=== PATIENT | female | born 1990 | race Caucasian/White ===

== ENCOUNTER 2024-11-13 16:24 | Emergency (ER) | payer OTHER ==
[2024-11-13 16:40] VITALS: RESP 18; TEMP 98.1
--- NOTE | 2024-11-13 17:09 | ED ---
Female Urogenital HPI - General Chief complaint: Vaginal Bleeding Stated complaint: Urogenital Time Seen by Provider: 11/13/24 17:08 Source: patient, RN notes reviewed Mode of arrival: ambulatory Limitations: no limitations - History of Present Illness Initial comments: 34-year-old female G3, presenting to the ER for evaluation of vaginal clotting. Patient states last Tuesday, 11 07 24, she started to experience abdominal cramping and believed her menstrual cycle was about to begin. The following day she noted vaginal spotting which she also contributed to her menstrual cycle. She states Tuesday evening she passed 1 large clot in her pants. Tuesday she had "a normal menstrual cycle" with heavy bleeding. The next 2 days she had very light spotting but not even feeling a menstrual pad. Today she had continued of passing numerous clots. She reports minimal abdominal cramping at this time. Patient states her last menstrual cycle was 10-10-2024. She is unsure if she was but states this type of bleeding occurred in her last miscarriage in 2018. She denies any dizziness, lightheadedness, shortness of breath, chest pain, dysuria, constipation/diarrhea or peripheral edema. - Related Data Allergies Allergy/AdvReac Type Severity Reaction Status Date / Time No Known Allergies Allergy Verified 11/13/24 16:34 Review of Systems ROS Statement: Those systems with pertinent positive or pertinent negative responses have been documented in the HPI. ROS Other: All systems not noted in ROS Statement are negative. Past Medical History Additional Past Medical History / Comment(s): miscarriage Past Surgical History: Appendectomy, Breast Surgery, Section Additional Past Surgical History / Comment(s): lymph node removed from R axilla. pyogenic granuloma removed from R breast Past Psychological History: No Psychological Hx Reported Smoking Status: Never smoker Past Alcohol Use History: None Reported Past Drug Use History: None Reported General Exam Limitations: no limitations General appearance: alert, in no apparent distress Respiratory exam: Present: normal lung sounds bilaterally. Absent: respiratory distress, wheezes, rales, rhonchi, stridor Cardiovascular Exam: Present: regular rate, normal rhythm, normal heart sounds. Absent: systolic murmur, diastolic murmur, rubs, gallop, clicks GI/Abdominal exam: Present: soft, normal bowel sounds. Absent: distended, tenderness, guarding, rebound, rigid External exam: Present: normal external exam Speculum exam: Present: vaginal bleeding (Minimal) Neurological exam: Present: alert, oriented X3, CN II-XII intact Skin exam: Present: warm, dry, intact, normal color. Absent: rash Course Vital Signs 11/13/24 11/13/24 16:35 20:43 Temperature 98.1 F Pulse Rate 98 80 Respiratory 18 18 Rate Blood Pressure 104/61 110/76 O2 Sat by Pulse 96 99 Oximetry Medical Decision Making - Medical Decision Making Was pt. sent in by a medical professional or institution (, PA, MEDICAL SALES CONSULTANT, urgent care, hospital, or [facility]...) When possible be specific @ -No Did you speak to anyone other than the patient for history (EMS, parent, family, police, friend...)? What history was obtained from this source @ -No Did you review nursing and triage notes (agree or disagree)? Why? @ -I reviewed and agree with nursing and triage notes Were old charts reviewed (outside hosp., previous admission, EMS record, old EKG, old radiological studies, urgent care reports/EKG's, [facility] records)? Report findings @ -No old charts were reviewed Differential Diagnosis (chest pain, altered mental status, abdominal pain women, abdominal pain men, vaginal bleeding, weakness, fever, dyspnea, syncope, headache, dizziness, GI bleed, back pain, seizure, CVA, palpatations, mental health, musculoskeletal)? @ -[Differential Vaginal Bleeding:Spontaneous , threatened , m olar , ectopic , bloody show, incompetent cervix, abruptioplacenta, placenta previa, uterine rupture, dysfunctional uterine bleeding, hemorrhage, uterine fibroids, this is not meant to be an all-inclusive list. EKG interpreted by me (3pts min.). @ -None done X-rays interpreted by me (1pt min.). @ -None done CT interpreted by me (1pt min.). @ -None done U/S interpreted by me (1pt. min.). @ -Transvaginal ultrasound showing a right ovarian cyst. Appropriate arterial and venous blood flow to right ovary. Left ovary unable to be visualized. What testing was considered but not performed or refused? (CT, X-rays, U/S, labs)? Why? @ -None What meds were considered but not given or refused? Why? @ -None Did you discuss the management of the patient with other professionals (professionals i.e. DrEsme, PA, MEDICAL SALES CONSULTANT, lab, RT, psych nurse, psychotherapist social worker, tool turret lathe set up operator, teacher, customs and immigration officer, case repairer)? Give summary @ -No Was smoking cessation discussed for >3mins.? @ -No Was critical care preformed (if so, how long)? @ -No Were there social determinants of health that impacted care today? How? (Homelessness, low income, unemployed, alcoholism, drug addiction, transportation, low edu. Level, literacy, decrease access to med. care, group home, rehab)? @ -No Was there de-escalation of care discussed even if they declined (Discuss DNR or withdrawal of care, Hospice)? DNR status @ -No What co-morbidities impacted this encounter? (DM, HTN, Smoking, COPD, CAD, Cancer, CVA, ARF, Chemo, Hep., AIDS, mental health diagnosis, sleep apnea, morbid obesity)? @ -None Was patient admitted / discharged? Hospital course, mention meds given and route, prescriptions, significant lab abnormalities, going to OR and other pertinent info. @ -Discharge. 34-year-old female presented to ER for evaluation of vaginal clotting. Patient is concerned as she has had similar bleeding patterns in the past with miscarriages. Upon rooming, history and physical exam completed. Vitals within acceptable limits. Pelvic exam performed and chaperoned by Bahman Gayle RN. Exam remarkable for minimal cervical bleeding. No CMT. Laboratory data obtained showing a stable hemoglobin of 13.2, WBC 9.4. Serum hCG less than 2.4. Transvaginal ultrasound showing a right ovarian cyst with appropriate blood flow to right ovary. Left ovary is unable to be visualized. As patient is not having no abdominal pain with stable vital signs and hemoglobin I believe she stable for discharge and outpatient follow-up. Patient is agreeable to this. Strict return parameters discussed. Patient discharged in stable condition with follow-up to PCP/HORSE STUD WORKER. Patient verbally expressed understanding and agreement with care plan. Case discussed with ED attending, Dr. Rollins. Undiagnosed new problem with uncertain prognosis? @ -No Drug Therapy requiring intensive monitoring for toxicity (Heparin, Nitro, Insulin, Cardizem)? @ -No Were any procedures done? @ -No Diagnosis/symptom? @ -Vaginal bleeding Acute, or Chronic, or Acute on Chronic? @ -Acute Uncomplicated (without systemic symptoms) or Complicated (systemic symptoms)? @ -Uncomplicated Side effects of treatment? @ -No Exacerbation, Progression, or Severe Exacerbation? @ -No Poses a threat to life or bodily function? How? (Chest pain, [place], [place], pneumonia, PE, COPD, DKA, ARF, appy, cholecystitis, CVA, Diverticulitis, Homicidal, Suicidal, threat to staff... and all critical care pts) @ -No - Lab Data Result diagrams: 11/13/24 17:28 11/13/24 17:28 Lab Results 11/13/24 11/13/24 Range/Units 17:28 17:28 WBC 9.4 (3.8-10.6) k/uL RBC 4.85 (3.80-5.40) m/uL Hgb 13.2 (11.4-16.0) gm/dL Hct 39.9 (34.0-46.0) % MCV 82.2 (80.0-100.0) fL MCH 27.1 (25.0-35.0) pg MCHC 33.0 (31.0-37.0) g/dL RDW 13.1 (11.5-15.5) % Plt Count 336 (150-450) k/uL MPV 7.3 Neutrophils % 63 % Lymphocytes % 28 % Monocytes % 5 % Eosinophils % 2 % Basophils % 0 % Neutrophils # 5.9 (1.3-7.7) k/uL Lymphocytes # 2.6 (1.0-4.8) k/uL Monocytes # 0.5 (0-1.0) k/uL Eosinophils # 0.2 (0-0.7) k/uL Basophils # 0.0 (0-0.2) k/uL Sodium 136 L (137-145) mmol/L Potassium 4.0 (3.5-5.1) mmol/L Chloride 102 (98-107) mmol/L Carbon Dioxide 27 (22-30) mmol/L Anion Gap 7 mmol/L BUN 13 (7-17) mg/dL Creatinine 0.57 (0.52-1.04) mg/dL Est GFR (CKD-EPI)AfAm >90 (>60 ml/min/1.73 sqM) Est GFR (CKD-EPI)NonAf >90 (>60 ml/min/1.73 sqM) Glucose 94 (74-99) mg/dL Calcium 9.5 (8.4-10.2) mg/dL Total Bilirubin 0.3 (0.2-1.3) mg/dL AST 32 (14-36) U/L ALT 20 (4-34) U/L Alkaline Phosphatase 77 (38-126) U/L Total Protein 7.2 (6.3-8.2) g/dL Albumin 4.0 (3.5-5.0) g/dL HCG, Quant <2.4 mIU/mL - Radiology Data Radiology results: report reviewed, image reviewed Disposition Clinical Impression: Vaginal bleeding Disposition: HOME SELF-CARE Condition: Stable Additional Instructions: Follow-up with [facility]ESS and PCP. Return to the ER for any new or worsening concerns. Is patient prescribed a controlled substance at d/c from ED?: No Referrals: Bahman Martinez DO [Primary Care Provider] - 1-2 days Kane Mcneal MD [STAFF PHYSICIAN] - 1-2 days Time of Disposition: 19:57
[2024-11-13 17:39] LABS: Basophils % (A) 0 %; Eosinophils # (A) 0.2 k/uL (0-0.7); Eosinophils % (A) 2 %; HCT 39.9 % (34.0-46.0); HGB 13.2 gm/dL (11.4-16.0); Lymphocytes # (A) 2.6 k/uL (1.0-4.8); Lymphocytes % (A) 28 %; MCH 27.1 pg (25.0-35.0); MCV 82.2 fL (80.0-100.0); Mean Platelet Volume 7.3; Monocytes # (A) 0.5 k/uL (0-1.0); Monocytes % (A) 5 %; Neutrophils # (A) 5.9 k/uL (1.3-7.7); Neutrophils % (A) 63 %; Platelet Count 336 k/uL (150-450); RBC 4.85 m/uL (3.80-5.40); RDW 13.1 % (11.5-15.5); WBC 9.4 k/uL (3.8-10.6)
[2024-11-13 17:51] LABS: ALT 20 U/L (4-34); AST 32 U/L (14-36); African American GFR (CKD) >90 (>60 ml/min/1.73 sqM); Alkaline Phosphatase 77 U/L (38-126); Anion Gap 7 mmol/L; Blood Urea Nitrogen 13 mg/dL (7-17); Calcium 9.5 mg/dL (8.4-10.2); Carbon Dioxide 27 mmol/L (22-30); Chloride 102 mmol/L (98-107); Glucose 94 mg/dL (74-99); Non-African American GFR(CKD) >90 (>60 ml/min/1.73 sqM); Sodium 136 mmol/L (137-145); Total Bilirubin 0.3 mg/dL (0.2-1.3); Total Protein 7.2 g/dL (6.3-8.2)
[2024-11-13 18:08] LABS: HCG,Quantitative Serum <2.4 mIU/mL
--- NOTE | 2024-11-13 19:44 | US ---
EXAMINATION TYPE: US transvaginal DATE OF EXAM: 11/13/2024 COMPARISON: NONE CLINICAL INDICATION: Female, 34 years old with history of vaginal clotting; Patient states heavy vagi nal bleeding since tuesday, unlike normal menstrual cycle. hx 2 C sections TECHNIQUE: Transvaginal (TV). Transvaginal sonographic images were medically necessary to better assess the following anatomy: Uter us Doppler imaging: Color Doppler Images were obtained. Spectral doppler images were obtained. FINDINGS: Date of LMP: 10/10/24 EXAM MEASUREMENTS: Uterus: 9.9 x 4.5 x 4.7 cm Endometrial Stripe: 0.9 cm Right Ovary: 3.5 x 2.5 x 2.6 cm Left Ovary: obscured by gas 1. Uterus: Anteverted There are multiple anechoic areas seen within the cervix, largest measuring 1.2 x 1.0 x 0.9 compatible with nabothian cysts. 2. Endometrium: wnl 3. Right Ovary: There is a 3.2 x 1.8 x 2.6cm cystic lesion seen 4. Left Ovary: Obscured by overlying bowel gas Spectral, color and waveform doppler imaging shows good arterial and venous flow within the right o vary; there is no evidence for ovarian torsion within the right ovary. Left ovary not visualized due to overlying bowel gas 5. Bilateral Adnexa: wnl as best seen 6. Posterior cul-de-sac: wnl IMPRESSION: 1. Right ovarian cyst [facility], , 11/13/2024 7:41 PM
[2024-11-13 20:44] VITALS: BP 110/76; PULSE 80
== END 2024-11-13 20:48 | disposition home or self-care (01) ==
LOC: EC 16:24
DX: N93.9 Abnormal uterine and vaginal bleeding, unspecified (principal)
CPT/HCPCS: 36415; 76830; 80053; 84702; 85025; 93976; 99284

== ENCOUNTER 2025-02-27 14:53 | Emergency (ER) | payer OTHER ==
--- NOTE | 2025-02-27 15:35 | ED ---
Skin/Abscess/FB HPI - General Chief complaint: Skin/Abscess/Foreign Body Stated complaint: R Leg Rash/Pain Time Seen by Provider: 02/27/25 15:05 Source: patient, RN notes reviewed Mode of arrival: ambulatory Limitations: no limitations - History of Present Illness Initial comments: This is a 34-year-old female presenting for rash in right groin for several years. Patient endorses burning and odor associated with rash. Endorses prior use of nystatin, clotrimazole, cornstarch baby powder with rash nearly resolving before returning after running out of medication. Patient notes some draining from rash for the past 4 days. Denies fever, chills, significant tenderness, purulent discharge, red streaking. MD complaint: rash Onset/Timin -: year(s) Location: genitals Quality: burning Consistency: constant Improves with: topical medication Worsens with: palpation, movement Context: none Associated symptoms: denies other symptoms Treatments Prior to Arrival: other - Related Data Previous Rx's Medication Instructions Recorded Miconazole 2% Cream [Monistat-Derm] 1 applic TOPICAL BID #30 gm 02/27/25 Nystatin 100,000 Unit/gm Powd 1 applic TOPICAL TID #30 gm 02/27/25 [Mycostatin Powder] Allergies Allergy/AdvReac Type Severity Reaction Status Date / Time No Known Allergies Allergy Verified 02/27/25 15:03 Review of Systems ROS Statement: Those systems with pertinent positive or pertinent negative responses have been documented in the HPI. ROS Other: All systems not noted in ROS Statement are negative. Past Medical History Additional Past Medical History / Comment(s): miscarriage Past Surgical History: Appendectomy, Breast Surgery, Section Additional Past Surgical History / Comment(s): lymph node removed from R axilla. pyogenic granuloma removed from R breast Past Psychological History: No Psychological Hx Reported Smoking Status: Never smoker Past Alcohol Use History: None Reported Past Drug Use History: None Reported General Exam Limitations: no limitations General appearance: alert, in no apparent distress Head exam: Present: atraumatic, normocephalic, normal inspection Eye exam: Present: normal appearance, PERRL, EOMI. Absent: scleral icterus, conjunctival injection, periorbital swelling ENT exam: Present: normal exam, mucous membranes moist Neck exam: Present: normal inspection. Absent: tenderness, meningismus, lymphad enopathy Respiratory exam: Present: normal lung sounds bilaterally. Absent: respiratory distress, wheezes, rales, rhonchi, stridor Cardiovascular Exam: Present: regular rate, normal rhythm, normal heart sounds. Absent: systolic murmur, diastolic murmur, rubs, gallop, clicks GI/Abdominal exam: Present: soft, normal bowel sounds. Absent: distended, tenderness, guarding, rebound, rigid Extremities exam: Present: normal inspection, full ROM, normal capillary refill. Absent: tenderness, pedal edema, joint swelling, calf tenderness Back exam: Present: normal inspection Neurological exam: Present: alert, oriented X3, CN II-XII intact Psychiatric exam: Present: normal affect, normal mood Skin exam: Present: warm, dry, intact, normal color, rash (Positive extensive intertrigo rash noted right inguinal region fold with associated odor. No obvious vesicles/blistering, discharge, tenderness) Course Vital Signs 02/27/25 02/27/25 14:59 16:19 Temperature 98.2 F 98.0 F Pulse Rate 73 70 Respiratory 16 20 Rate Blood Pressure 132/98 126/99 O2 Sat by Pulse 99 99 Oximetry Medical Decision Making - Medical Decision Making Was pt. sent in by a medical professional or institution (, EMMANUELLE, IC DESIGN MANAGER, urgent care, hospital, or care home...) When possible be specific @ -[No] Did you speak to anyone other than the patient for history (EMS, parent, family, police, friend...)? What history was obtained from this source @ -[No] Did you review nursing and triage notes (agree or disagree)? Why? @ -[I reviewed and agree with nursing and triage notes] Were old charts reviewed (outside hosp., previous admission, EMS record, old EKG, old radiological studies, urgent care reports/EKG's, care home records)? Report findings @ -[No old charts were reviewed] Differential Diagnosis (chest pain, altered mental status, abdominal pain women, abdominal pain men, vaginal bleeding, weakness, fever, dyspnea, syncope, headache, dizziness, GI bleed, back pain, seizure, CVA, palpatations, mental health, musculoskeletal)? @ -Intertrigo, cellulitis, erysipelas, tinea corporis, SJS, TENS, this is not an exhaustive list EKG interpreted by me (3pts min.). @ -Not done X-rays interpreted by me (1pt min.). @ -[None done] CT interpreted by me (1pt min.). @ -[None done] U/S interpreted by me (1pt. min.). @ -[None done] What testing was considered but not performed or refused? (CT, X-rays, U/S, labs)? Why? @ -[None] What meds were considered but not given or refused? Why? @ -[None] Did you discuss the management of the patient with other professionals (professionals i.e. DrEsme, PA, IC DESIGN MANAGER, lab, RT, psych nurse, director of social work, sheriff deputy, teacher, canine enforcement officer, case resource manager)? Give summary @ -[No] Was smoking cessation discussed for >3mins.? @ -[No] Was critical care preformed (if so, how long)? @ -[No] Were there social determinants of health that impacted care today? How? (Homelessness, low income, unemployed, alcoholism, drug addiction, transportation, low edu. Level, literacy, decrease access to med. care, penitentiary, rehab)? @ -[No] Was there de-escalation of care discussed even if they declined (Discuss DNR or withdrawal of care, Hospice)? DNR status @ -[No] What co-morbidities impacted this encounter? (DM, HTN, Smoking, COPD, CAD, Cancer, CVA, ARF, Chemo, Hep., AIDS, mental health diagnosis, sleep apnea, morbid obesity)? @ -[None] Was patient admitted / discharged? Hospital course, mention meds given and route, prescriptions, significant lab abnormalities, going to OR and other pertinent info. @ -[hospital course] Undiagnosed new problem with uncertain prognosis? @ -[No] Drug Therapy requiring intensive monitoring for toxicity (Heparin, Nitro, Insulin, Cardizem)? @ -[No] Were any procedures done? @ -[No] Diagnosis/symptom? @ -Intertrigo Acute, or Chronic, or Acute on Chronic? @ -Acute Uncomplicated (without systemic symptoms) or Complicated (systemic symptoms)? @ -Uncomplicated Side effects of treatment? @ -[No] Exacerbation, Progression, or Severe Exacerbation? @ -[No] Poses a threat to life or bodily function? How? (Chest pain, [place], [place], pneumonia, PE, COPD, DKA, ARF, appy, cholecystitis, CVA, Diverticulitis, Homicidal, Suicidal, threat to staff... and all critical care pts) @ -[No] Disposition Clinical Impression: Candidal intertrigo Disposition: HOME SELF-CARE Condition: Good Instructions (If sedation given, give patient instructions): Skin Yeast Infection (ED) Additional Instructions: Keep affected area clean and dry. Continue use of topical medication for 1 week following resolution. Follow-up with dermatology if symptoms persist Prescriptions: Miconazole 2% Cream [Monistat-Derm] 1 applic TOPICAL BID #30 gm Nystatin 100,000 Unit/gm Powd [Mycostatin Powder] 1 applic TOPICAL TID #30 gm Is patient prescribed a controlled substance at d/c from ED?: No Referrals: Bahman Martinez DO [Primary Care Provider] - 1-2 days Maty Lorenz MD [REFERRING] - 1-2 days Time of Disposition: 15:35
[2025-02-27] MEDS: MICONAZOLE NITRATE 2% CREAM 14 GM TUBE TOPICAL STA (16:18)
[2025-02-27 16:20] VITALS: BP 126/99; PULSE 70; RESP 20; TEMP 98
== END 2025-02-27 17:11 | disposition home or self-care (01) ==
LOC: EC 14:53
DX: B37.2 Candidiasis of skin and nail (principal)
CPT/HCPCS: 99282